=== PATIENT | female | born 1950 | race Two or more races ===

== ENCOUNTER 2018-08-07 09:34 | Outpatient (CLI) | payer OTHER | END 2018-08-07 10:00 | disposition home or self-care (01) | LOC: TOM 09:34 | DX: Z12.11 Encounter for screening for malignant neoplasm of colon (principal) ==

== ENCOUNTER 2023-10-17 10:11 | Outpatient (CLI) | payer OTHER ==
[~2023-10-17 10:11] MED LIST: 8 HOUR650 MG PO; COZAAR25 MG
== END 2023-10-17 10:15 | disposition home or self-care (01) ==
LOC: RAD 10:11
PROVIDERS: ATTEND Orthopaedic Surgery
DX: S52.532A Colles' fracture of left radius, initial encounter for closed fracture (principal)